=== PATIENT | male | born 1970 | race Caucasian/White ===

== ENCOUNTER 2025-03-16 01:43 | Observation (INO) ==
--- NOTE | 2025-03-16 01:58 | Emergency Department Note ---
Impression & Plan Stroke-like symptoms Admission ED Provider Note HPI: History obtained from patient. The patient is a 54-year-old gentleman with history of hypertension, hyperlipidemia, who presents to the emergency department with 1-1/2 hours of symptoms of chest discomfort, shortness of breath, and left-sided facial numbness. Patient states that he was drinking alcohol and working in his garage on a vehicle when he began to have the symptoms, he tells me it was about 1-1/2 hours prior to arrival. On arrival here to the ED the patient states he has discomfort in his shoulder that radiates down the left side of his body. He is noted to have some mild left-sided facial droop but otherwise does not have any focal deficits. Patient is alert and oriented x 3 on arrival and follows commands appropriately. ROS: - Per HPI Differential Diagnosis: Acute ischemic stroke, acute coronary syndrome, esophagitis, GERD, pneumothorax, pulmonary embolism, intracranial hemorrhage, Joyce's palsy, amongst other potential pathologies. *Outpatient medications and allergy history reviewed. PE: General: Alert HEENT: Normocephalic, trachea midline Eyes: Extraocular eye movement is intact, no scleral erythema Pulmonary: Clear to auscultation bilaterally, no wheezing Cardio: Regular rate and rhythm GI: Abdomen is soft to palpation : No suprapubic tenderness MSK: No evidence of trauma or malformation of the extremities, no edema Skin: No evidence of rash Neuro: Mild left-sided facial droop is noted, otherwise alert, no focal deficits Psychiatric: Cooperative NIH STROKE SCALE: 1A: Level of consciousness Alert; keenly responsive 0 1B: Ask month and age Both questions right 0 1C: 'Blink eyes' & 'squeeze hands' Performs both tasks 0 2: Horizontal extraocular movements Normal 0 3: Visual rose No visual loss 0 4: Facial palsy Minor paralysis (flat nasolabial fold, smile asymmetry) +1 5A: Left arm motor drift No drift for 10 seconds 0 5B: Right arm motor drift No drift for 10 seconds 0 6A: Left leg motor drift No drift for 5 seconds 0 6B: Right leg motor drift No drift for 5 seconds 0 7: Limb Ataxia No ataxia 0 8: Sensation Normal; no sensory loss 0 9: Language/aphasia Normal; no aphasia 0 10: Dysarthria Normal 0 11: Extinction/inattention No abnormality 0 TOTAL NIH SCORE =1 INDEPENDENT INTERPRETATIONS: secured entrance monitor: (As interpreted by myself): - An order was placed for continuous cardiac monitoring - Patient was noted to be in sinus rhythm with a rate of 70 EKG: (As interpreted by myself): Rate: 77 Rhythm: Normal sinus rhythm Intervals: Within normal limits ST changes: No ST elevation Time: 0153 Chest x-ray: (As interpreted by myself): No acute disease Interventions provided in ED: - Aspirin Medical Decision Making: IV was established and lab work obtained, patient was placed on cardiac rehabilitation specialist. Stroke alert was activated after my initial evaluation of the patient. Lab work shows a mild leukocytosis, hemoglobin is normal, platelet count is normal, CMP does not show any evidence of any critical findings. Troponin is negative x 1, EKG does not show any evidence of any acute ischemic changes. Chest x-ray does not show any evidence of acute disease per my interpretation. CT imaging of the head as well as CT angiography of the head and neck were obtained, there is no evidence of any acute stroke or large vessel occlusion. I discussed the patient's presentation with the on-call stroke neurologist for [facility], Dr. Oliveira, and he did evaluate the patient via telestroke consult. Following his evaluation it was determined that the patient would not be a good candidate for lysis as his symptoms are not considered to be debilitating. He only has some mild left-sided facial droop. In regards to the patient's chest pain, troponin is negative, EKG did not show any evidence of acute ischemic changes. He states he is pain-free on my reassessment. Recommendations per telestroke consult were for admission, aspirin, and secondary workup including MRI imaging of the brain to evaluate for any potential stroke that was not visualized on CT. Patient was in agreement to this plan. His case was discussed with the on-call hospitalist, Dr. Alamo, and the patient was placed for admission in stable condition. Consultants/Discussions held with other healthcare providers: - Stroke Neurology, Dr. Oliveira - Hospitalist, Dr. Alamo Disposition discussion held by myself with: - Patient Diagnosis: 1. Strokelike symptoms, acute 2. Nonspecific left-sided chest pain, acute Disposition: Admission Michael Cottrell DO Emergency Medicine Past Med/Surg History Problem List (Updated 03/16/25 @ 05:15 by Michael Cottrell DO) Stroke-like symptoms (Acute) Social History Smoking Status: Current every day smoker Preferred Language: Yemeni Feels Safe at Home: Yes Allergies Allergies Allergy/AdvReac Type Severity Reaction Status Date / Time No Known Allergies Allergy Unverified 03/16/25 02:06 Home Meds Home Medications Medication Instructions Recorded Confirmed atorvastatin 1 tab PO DAILY 03/16/25 03/16/25 lisinopril 10 1 tab PO DAILY 03/16/25 03/16/25 mg-hydrochlorothiazide 12.5 mg tablet Results & Data (ED) Vital Signs Vital Signs - 24 hr 03/16/25 01:46 03/16/25 01:55 03/16/25 02:26 Temperature 36.4 C L Temperature Source Temporal Artery Scan Pulse Rate 79 78 Pulse Rate [Right Finger] 77 Pulse Rhythm Regular Pulse Strength Normal Respiratory Rate 18 19 Respiratory Effort / Characteristics Non-Labored Spontaneous Respiratory Depth Normal Respiratory Pattern Regular Blood Pressure 118/73 Blood Pressure [Right Arm] Blood Pressure Mean 88 Blood Pressure Mean [Right Arm] Blood Pressure Position Sitting Pulse Oximetry 97 92 Oxygen Delivery Method Room Air Room Air Sepsis Recent Fever Within 48 Hours No Sepsis New/Unexplained Change in Mental Status N/A Sepsis Action Taken by Nursing No Action Required 03/16/25 02:27 03/16/25 02:46 03/16/25 03:00 Temperature Temperature Source Pulse Rate Pulse Rate [Right Finger] 80 79 65 Pulse Rhythm Pulse Strength Respiratory Rate 19 16 16 Respiratory Effort / Characteristics Non-Labored Spontaneous Respiratory Depth Normal Respiratory Pattern Blood Pressure Blood Pressure [Right Arm] 117/72 125/77 117/71 Blood Pressure Mean Blood Pressure Mean [Right Arm] 87 93 86 Blood Pressure Position Pulse Oximetry 93 91 94 Oxygen Delivery Method Room Air Room Air Room Air Sepsis Recent Fever Within 48 Hours Sepsis New/Unexplained Change in Mental Status Sepsis Action Taken by Nursing 03/16/25 03:11 03/16/25 03:26 03/16/25 03:41 Temperature Temperature Source Pulse Rate Pulse Rate [Right Finger] 65 63 66 Pulse Rhythm Pulse Strength Respiratory Rate 18 16 18 Respiratory Effort / Characteristics Respiratory Depth Respiratory Pattern Blood Pressure Blood Pressure [Right Arm] 121/63 100/61 113/69 Blood Pressure Mean Blood Pressure Mean [Right Arm] 82 74 83 Blood Pressure Position Pulse Oximetry 96 97 93 Oxygen Delivery Method Room Air Room Air Room Air Sepsis Recent Fever Within 48 Hours Sepsis New/Unexplained Change in Mental Status Sepsis Action Taken by Nursing 03/16/25 04:00 Temperature Temperature Source Pulse Rate Pulse Rate [Right Finger] 68 Pulse Rhythm Pulse Strength Respiratory Rate 18 Respiratory Effort / Characteristics Respiratory Depth Respiratory Pattern Blood Pressure Blood Pressure [Right Arm] 98/65 L Blood Pressure Mean Blood Pressure Mean [Right Arm] 76 Blood Pressure Position Pulse Oximetry 94 Oxygen Delivery Method Room Air Sepsis Recent Fever Within 48 Hours Sepsis New/Unexplained Change in Mental Status Sepsis Action Taken by Nursing Laboratory Data 03/16/25 03:03 03/16/25 01:58 Lab Results 03/16/25 03/16/25 03/16/25 Range/Units 01:58 02:02 03:03 WBC 11.79 H (4.8-10.8) K/ul RBC 5.29 (4.70-6.10) M/uL Hgb 16.2 (14.0-18.0) g/dl POC Hgb 16.7 (14.0-18.0) g/dl Hct 47.5 (42.0-52.0) % POC Hct 49 (42-52) % MCV 89.8 (80.0-100.0) fL MCH 30.6 (25.0-34.0) pg MCHC 34.1 (32.0-36.0) g/dL RDW Std Deviation 43.0 (36.4-46.3) fL RDW Coeff of [place] 13.0 (11.5-14.5) % Plt Count 240 (130-400) K/uL MPV 10.8 (9.4-12.4) fL Immature Gran % (Auto) 0.3 % Neut % (Auto) 68.3 % Lymph % (Auto) 23.5 % [place] % (Auto) 5.7 % Eos % (Auto) 1.6 % Baso % (Auto) 0.6 % Neut # (Auto) 8.05 H (1.40-6.50) K/uL Lymph # (Auto) 2.77 (1.20-3.40) K/uL [place] # (Auto) 0.67 H (0.11-0.59) K/uL Eos # (Auto) 0.19 (0.00-0.50) K/uL Baso # (Auto) 0.07 (0.00-0.20) K/uL Immature Gran # (Auto) 0.04 (0.01-0.20) K/uL PT 10.2 (9.0-12.0) Seconds INR 1.0 (0.9-1.1) APTT 27 (21-31) Seconds PTT Ratio 1.0 POC Sodium 142 (135-144) mmol/L Sodium 139 (136-145) mmol/L POC Potassium 3.4 (3.3-5.0) mmol/L Potassium 3.4 L (3.5-5.1) mmol/L POC Chloride 107 (101-112) mmol/L Chloride 107 (98-107) mmol/L Carbon Dioxide 19 L (21-32) mmol/L POC Total CO2 19 L (24-31) mmol/L Anion Gap 13 H (3-11) POC Anion Gap 20.0 (16-25) mmol/L POC BUN 13 (7-18) mg/dl BUN 13 (6-23) mg/dl Creatinine 0.99 (0.6-1.4) mg/dl POC Creatinine 1.3 (0.6-1.3) mg/dl Est Cr Clr Drug Dosing 78.8 ml/min eGFR 89.96 BUN/Creatinine Ratio 13.1 (10-20) Glucose 99 (70-99(Fasting)) mg/dl POC Glucose (other) 97 (70-99) mg/dl Calcium 9.4 (8.6-10.3) mg/dl POC Ioniz Calcium Red 1.11 L (1.12-1.32) mmol/l Magnesium 2.2 (1.7-2.4) mg/dl Total Bilirubin 0.4 (0.2-1.0) mg/dl AST 24 (13-39) U/L ALT 23 (7-52) U/L Alkaline Phosphatase 86 (34-104) U/L Troponin I High Sens 7.4 (0-20) pg/ml Total Protein 7.4 (6.0-8.3) gm/dl Albumin 4.6 (3.4-5.0) gm/dl Globulin 2.8 (2.5-4.0) gm/dl Albumin/Globulin Ratio 1.6 (0.9-2) Blood Type A Positive Antibody Screen NEGATIVE Administered Medications Discontinued Medications Aspirin (Aspirin Chew 324 Mg) 324 mg PO NOW STA Stop: 03/16/25 04:01 Last Admin: 03/16/25 04:19 Dose: 324 mg Documented By: ANAM Sodium Chloride (Nss) 1,000 mls @ 999 mls/hr IV .Q1H1M ONE Stop: 03/16/25 02:57 Last Infusion: 03/16/25 03:35 Dose: Infused Documented By: Admin: 03/16/25 02:26 Dose: 999 mls/hr Documented By: DILLON Ioversol (Optiray 320 125ml) 120 ml IV ONCE ONE Stop: 03/16/25 02:00 Last Admin: 03/16/25 01:59 Dose: 120 ml Documented By: MALINDA Imaging Data Radiologist's Impression: Head CT 03/16/25 01:56 EXAM: CT head/brain wo con CLINICAL HISTORY: neuro deficit, acute stroke suspected TECHNIQUE: Multiple axial images were obtained from the skull base to the vertex without contrast. CT scan was performed according to ALARA (as low as reasonably achievable). COMPARISON: None. FINDINGS: The brain demonstrates normal morphology, attenuation, and volume for age. There is no evidence of a space-occupying lesion, hemorrhage, edema, mass effect, midline shift, extra-axial collection, or hydrocephalus. The ventricles, sulci, and basal cisterns are symmetric and normal in size and configuration. Rivera-white matter differentiation is preserved. The visualized paranasal sinuses and mastoid air cells are well aerated. Orbital contents are within normal limits. Bony structures are intact. IMPRESSION: 1. CT scan is negative for large territorial ischemic or hemorrhagic stroke. 2. Non-contrast CT can be negative in the setting of hyperacute infarct or small ischemic infarct, and further evaluation with diffusion-weighted MRI is recommended as clinically appropriate. Electronically signed by Kain Carter 03-16-2025 02:38 AM Head CTA 03/16/25 01:56 EXAM: CT angio head w con CLINICAL HISTORY: neuro deficit, acute stroke suspected TECHNIQUE: Contrast-enhanced, thin-slice CT angiography scan of the cerebral vessels was performed with intravenous contrast. Angiographic images were processed, and 3D MIP images were acquired for interpretation. Contiguous axial images were obtained. Reformatted coronal and sagittal images were also reviewed. If IV contrast material had not been administered, the likelihood of detecting abnormalities relevant to the patient's condition would have been substantially decreased. CT scan was performed according to ALARA (as low as reasonably achievable). COMPARISON: none. FINDINGS: Bilateral internal carotid arteries show normal course, calibre, and opacification in the canalicular and cavernous parts. Their division into the anterior cerebral artery and middle cerebral artery is defined. A1, A2, and M1, M2 segments are normal on both sides. Bilateral vertebral arteries are seen to unite to form the basilar artery in a normal fashion. Basilar artery shows normal course, caliber, and opacification. Its division into the posterior cerebral arteries is defined. Bilateral P1 and P2 segments are normal. Visualized venous structures show normal opacification. No evidence of intracranial aneurysm or AV malformation is seen. IMPRESSION: No evidence of stenosis or aneurysm. No evidence of dissection. Electronically signed by Kain Carter 03-16-2025 02:39 AM Neck CTA 03/16/25 01:56 EXAM: CT angio neck with con CLINICAL HISTORY: neuro deficit, acute stroke suspected TECHNIQUE: Contrast-enhanced, thin-slice CT angiography scan of the carotid vessels was performed with intravenous contrast. Angiographic images were processed, and 3D MIP images were acquired for interpretation. Contiguous axial images were obtained. Reformatted coronal and sagittal images were also reviewed. If IV contrast material had not been administered, the likelihood of detecting abnormalities relevant to the patient's condition would have been substantially decreased. The CT scan was performed according to ALARA (as low as reasonably achievable). COMPARISON: None. FINDINGS: The included great vessels of the aortic arch are grossly unremarkable. The common carotid artery, carotid bulb, internal carotid artery, and origin of the external carotid artery are well opacified. The vertebral arteries are well opacified. The jugular veins are well opacified. The included lung apices are grossly unremarkable. The thyroid gland appears unremarkable. IMPRESSION: No evidence of stenosis or aneurysm. No evidence of dissection. Electronically signed by Kain Carter 03-16-2025 02:49 AM Chest X-Ray 03/16/25 01:57 EXAM: XR chest 1V portable CLINICAL HISTORY: SOB/CP. TECHNIQUE: An X-ray image of the chest was obtained in AP projection. COMPARISON: No prior studies are available for comparison. FINDINGS: Chest leads are identified. Pulmonary Parenchyma: The lungs are clear bilaterally. There is no evidence of consolidation, collapse, or focal opacities. No pulmonary nodules are identified. There is no evidence of pleural effusion or pleural thickening. Prominent vessels are seen at both pineda, likely due to vascular congestion. Heart and Mediastinum: The heart size and shape are normal. There is no mediastinal widening or masses. No hilar or mediastinal lymphadenopathy is seen. Bony Thorax: The bony thorax appears intact without fractures or deformities. Soft Tissues: The soft tissues overlying the chest wall are unremarkable. IMPRESSION: 1. No acute cardiopulmonary abnormalities are identified. 2. Prominent vessels at both pineda, likely due to vascular congestion. Electronically signed by Jacob Kimble 03-16-2025 03:11 AM Discharge Plan Visit Data Chief Complaint: Stroke/CVA Symptoms Stated Complaint: STROKE SYMP ED Provider: Michael Cottrell Discharge Problem: Stroke-like symptoms Patient Disposition: Admitted As Inpatient Condition: Fair Forms Stand Alone Forms: [employer] Signals Prescriptions Prescriptions: No Action atorvastatin 20 mg 1 tab PO DAILY Rx Instructions: unknown strength lisinopril-hydrochlorothiazide 10-12.5 mg Tablet 1 tab PO DAILY Referrals Referrals: Johnny Tyler Jr, DO [Physician] -
[2025-03-16] MEDS: OPTIRAY 320 125ml IV ONE (01:59)
[2025-03-16] MEDS: SODIUM CHLORIDE 0.9% 1,000 ML IV ONE (02:26)
--- NOTE | 2025-03-16 02:39 | CT Scan Report ---
EXAM: CT angio head w con CLINICAL HISTORY: neuro deficit, acute stroke suspected TECHNIQUE: Contrast-enhanced, thin-slice CT angiography scan of the cerebral vessels was performed with intravenous contrast. Angiographic images were processed, and 3D MIP images were acquired for interpretation. Contiguous axial images were obtained. Reformatted coronal and sagittal images were also reviewed. If IV contrast material had not been administered, the likelihood of detecting abnormalities relevant to the patient's condition would have been substantially decreased. CT scan was performed according to ALARA (as low as reasonably achievable). COMPARISON: none. FINDINGS: Bilateral internal carotid arteries show normal course, calibre, and opacification in the canalicular and cavernous parts. Their division into the anterior cerebral artery and middle cerebral artery is defined. A1, A2, and M1, M2 segments are normal on both sides. Bilateral vertebral arteries are seen to unite to form the basilar artery in a normal fashion. Basilar artery shows normal course, caliber, and opacification. Its division into the posterior cerebral arteries is defined. Bilateral P1 and P2 segments are normal. Visualized venous structures show normal opacification. No evidence of intracranial aneurysm or AV malformation is seen. IMPRESSION: No evidence of stenosis or aneurysm. No evidence of dissection. Electronically signed by Kain Carter 03-16-2025 02:39 AM
--- NOTE | 2025-03-16 02:39 | CT Scan Report ---
EXAM: CT head/brain wo con CLINICAL HISTORY: neuro deficit, acute stroke suspected TECHNIQUE: Multiple axial images were obtained from the skull base to the vertex without contrast. CT scan was performed according to ALARA (as low as reasonably achievable). COMPARISON: None. FINDINGS: The brain demonstrates normal morphology, attenuation, and volume for age. There is no evidence of a space-occupying lesion, hemorrhage, edema, mass effect, midline shift, extra-axial collection, or hydrocephalus. The ventricles, sulci, and basal cisterns are symmetric and normal in size and configuration. Rivera-white matter differentiation is preserved. The visualized paranasal sinuses and mastoid air cells are well aerated. Orbital contents are within normal limits. Bony structures are intact. IMPRESSION: 1. CT scan is negative for large territorial ischemic or hemorrhagic stroke. 2. Non-contrast CT can be negative in the setting of hyperacute infarct or small ischemic infarct, and further evaluation with diffusion-weighted MRI is recommended as clinically appropriate. Electronically signed by Kain Carter 03-16-2025 02:38 AM
--- NOTE | 2025-03-16 02:49 | CT Scan Report ---
EXAM: CT angio neck with con CLINICAL HISTORY: neuro deficit, acute stroke suspected TECHNIQUE: Contrast-enhanced, thin-slice CT angiography scan of the carotid vessels was performed with intravenous contrast. Angiographic images were processed, and 3D MIP images were acquired for interpretation. Contiguous axial images were obtained. Reformatted coronal and sagittal images were also reviewed. If IV contrast material had not been administered, the likelihood of detecting abnormalities relevant to the patient's condition would have been substantially decreased. The CT scan was performed according to ALARA (as low as reasonably achievable). COMPARISON: None. FINDINGS: The included great vessels of the aortic arch are grossly unremarkable. The common carotid artery, carotid bulb, internal carotid artery, and origin of the external carotid artery are well opacified. The vertebral arteries are well opacified. The jugular veins are well opacified. The included lung apices are grossly unremarkable. The thyroid gland appears unremarkable. IMPRESSION: No evidence of stenosis or aneurysm. No evidence of dissection. Electronically signed by Kain Carter 03-16-2025 02:49 AM
--- NOTE | 2025-03-16 03:11 | XRay Report ---
EXAM: XR chest 1V portable CLINICAL HISTORY: SOB/CP. TECHNIQUE: An X-ray image of the chest was obtained in AP projection. COMPARISON: No prior studies are available for comparison. FINDINGS: Chest leads are identified. Pulmonary Parenchyma: The lungs are clear bilaterally. There is no evidence of consolidation, collapse, or focal opacities. No pulmonary nodules are identified. There is no evidence of pleural effusion or pleural thickening. Prominent vessels are seen at both pineda, likely due to vascular congestion. Heart and Mediastinum: The heart size and shape are normal. There is no mediastinal widening or masses. No hilar or mediastinal lymphadenopathy is seen. Bony Thorax: The bony thorax appears intact without fractures or deformities. Soft Tissues: The soft tissues overlying the chest wall are unremarkable. IMPRESSION: 1. No acute cardiopulmonary abnormalities are identified. 2. Prominent vessels at both pineda, likely due to vascular congestion. Electronically signed by Jacob Kimble 03-16-2025 03:11 AM
[2025-03-16 03:15] LABS: Hematocrit (blood only) 47.5 % (42.0-52.0); Hemoglobin 16.2 g/dl (14.0-18.0); Immature Granulocytes # (auto) 0.04 K/uL (0.01-0.20); Immature Granulocytes % (auto) 0.3 %; Mean Corpuscular Hemoglobin 30.6 pg (25.0-34.0); Mean Corpuscular Volume 89.8 fL (80.0-100.0); Platelet Count 240 K/uL (130-400); RDW Standard Deviation 43.0 fL (36.4-46.3); Red Blood Count 5.29 M/uL (4.70-6.10); White Blood Count 11.79 K/ul (4.8-10.8)
[2025-03-16 03:23] LABS: INR 1.0 (0.9-1.1); Partial Thromboplastin Time 27 Seconds (21-31); Prothrombin Time 10.2 Seconds (9.0-12.0)
[2025-03-16 03:26] LABS: Alanine Aminotransferase 23.0 U/L (7-52); Albumin Globulin Ratio 1.6 (0.9-2); Albumin Level 4.6 gm/dl (3.4-5.0); Alkaline Phosphatase 86.0 U/L (34-104); Anion Gap 13.0 (3-11); Bilirubin,Total 0.4 mg/dl (0.2-1.0); Blood Urea Nitrogen 13.0 mg/dl (6-23); Calcium 9.4 mg/dl (8.6-10.3); Carbon Dioxide 19.0 mmol/L (21-32); Chloride 107.0 mmol/L (98-107); Creatinine Clr Calc Pharmacy 78.8 ml/min; Globulin 2.8 gm/dl (2.5-4.0); Glucose 99.0 mg/dl (70-99(Fasting)); Magnesium 2.2 mg/dl (1.7-2.4); Potassium 3.4 mmol/L (3.5-5.1); Sodium 139.0 mmol/L (136-145); Total Protein 7.4 gm/dl (6.0-8.3)
[2025-03-16 04:09] VITALS: RESP 18
[2025-03-16] MEDS: ASPIRIN CHEW 324 MG PO STA (04:19)
--- NOTE | 2025-03-16 04:57 | History & Physical Report ---
Date of Service March 16, 2025 Assessment & Plan (1) Stroke-like symptoms: Plan: 54-year-old male with past medical history significant for hyperlipidemia, hypertension presents with strokelike symptoms. Around midnight patient was in his garage and was drinking beer when he felt like he could not take deep breath and then noticed pain in the left shoulder. The pain spread whole of his left side then he felt numbness in the left upper lip and decided come to the ER. His pain in the left side improved but felt somewhat different feeling of the left side for some time. He was stroke alerted in the ER. Currently all of his symptoms improved. Able to ambulate as per patient. Denies headache or dizziness. No blurred visions or double vision. No runny nose or sore throat or cough. No fevers. No difficulty swallowing. Denies any chest pain. No nausea. No abdominal pain. Normal bowel and bladder movements. No rash. States he drank 8 beers today. Patient says he generally drinks beer 6 pack a day on the weekends but on the weekdays he does not drink that much and sometimes he can go without drinking from Monday to Monday. Smokes 1 pack cigarettes daily and sometimes 1.5 pack daily since age 14. Currently resting comfortably. Strokelike symptoms Has mild left facial droop Patient had left lip numbness which is resolved now Initially had left-sided pain and then seemed to had unexplainable left side feeling which is resolved now No TNK per telestroke Received aspirin Will place him on high-dose Lipitor Will do stroke workup with MRI scan, echo Neurochecks PT OT Telemetry Neurology consulted for further recommendation Hypertension Will hold home lisinopril/hydrochlorothiazide Allow for permissive hypertension Will monitor Hyperlipidemia Seems on Lipitor 20 mg at home Will change to 40 mg Lipitor Will follow lipid profile Alcoholism States drinks at least 6 pack a day on the weekends but not much on the weekdays Patient does not think that he will go through withdrawal Will place him on thiamine and multivitamins Counseling Close monitor Tobacco abuse Counseling DVT prophylaxis SCDs Disposition Telemetry Full code History of Present Illness Chief Complaint: Strokelike symptoms Primary Care Provider: JULIO Nassar 54-year-old male with past medical history significant for hyperlipidemia, hypertension presents with strokelike symptoms. Around midnight patient was in his garage and was drinking beer when he felt like he could not take deep breath and then noticed pain in the left shoulder. The pain spread whole of his left side then he felt numbness in the left upper lip and decided come to the ER. His pain in the left side improved but felt somewhat different feeling of the left side for some time. He was stroke alerted in the ER. Currently all of his symptoms improved. Able to ambulate as per patient. Denies headache or dizziness. No blurred visions or double vision. No runny nose or sore throat or cough. No fevers. No difficulty swallowing. Denies any chest pain. No nausea. No abdominal pain. Normal bowel and bladder movements. No rash. States he drank 8 beers today. Patient says he generally drinks beer 6 pack a day on the weekends but on the weekdays he does not drink that much and sometimes he can go without drinking from Monday to Monday. Smokes 1 pack cigarettes daily and sometimes 1.5 pack daily since age 14. Currently resting comfortably. Past medical history. As mentioned above Past surgical history. Tympanostomy tubes. Tonsillectomy/adenectomy Social history. Smokes 1 pack a day and sometimes 1.5 pack a day for last 40 years. Drinks beer heavily on the weekends but not much on the weekdays as per patient. Denies any drug use. Family history. Paternal aunt had lung cancer. Maternal grandfather had pancreatic cancer. Paternal grandfather had lung cancer. Paternal grandmother had diabetes. Father has diabetes. Allergies Allergy/AdvReac Type Severity Reaction Status Date / Time No Known Allergies Allergy Unverified 03/16/25 02:06 Home Medications Medication Instructions Recorded Confirmed Type atorvastatin 1 tab PO DAILY 03/16/25 03/16/25 History lisinopril 10 1 tab PO DAILY 03/16/25 03/16/25 History mg-hydrochlorothiazide 12.5 mg tablet Past Med/Surg History Problem List (Updated 03/16/25 @ 05:15 by Michael Cottrell DO) Stroke-like symptoms (Acute) Social History Smoking Status: Current every day smoker Tobacco Type: Cigarettes Second Hand Exposure: Yes; Do You Dip or Chew Tobacco: No; Tobacco Cessation Education Requested by Patient: No Hx Alcohol Use: Yes Alcohol type: beer Hx Substance Use: No Preferred Language: Mongolian Communication Ability: Effective Ed Manager Required: No Beliefs That Will Affect Care: None Current Living Situation: Significant Other Feels Safe at Home: Yes Safety Concerns: Feels Safe At This Time Assistive Devices: Glasses Review of Systems Review of Systems: All systems reviewed & are unremarkable except as noted in HPI & below Physical Exam Physical Exam: General- Not in distress Head- atraumatic Eyes- PERRL, EOMI ENT- oropharynx clear Neck- supple, no JVD Lungs- clear to auscultation no wheezing or crackles Heart- regular rate and rhythm; no murmur, no gallop. Abdomen- normal bowel sounds, soft, nontender, no distension Extremities- no pretibial edema, no erythema seen Neuro- alert, oriented PERRL, EOMI; mild left facial droop seen no dysarthria; motor 5/5 bilaterally; no pronator drift, finger nose test ok, coordination of movements normal, sensations intact, position sense intact Skin- warm & dry Results & Data Results & Data Vital Signs (Past 12 Hours) Vital Signs Temp Pulse Pulse Resp BP BP Pulse Ox 03/16/25 04:00 68 18 98/65 L 94 03/16/25 03:41 66 18 113/69 93 03/16/25 03:26 63 16 100/61 97 03/16/25 03:11 65 18 121/63 96 03/16/25 03:00 65 16 117/71 94 03/16/25 02:46 79 16 125/77 91 03/16/25 02:27 80 19 117/72 93 03/16/25 02:26 77 19 92 03/16/25 01:55 78 03/16/25 01:46 36.4 C L 79 18 118/73 97 O2 Del Method 03/16/25 04:00 Room Air 03/16/25 03:41 Room Air 03/16/25 03:26 Room Air 03/16/25 03:11 Room Air 03/16/25 03:00 Room Air 03/16/25 02:46 Room Air 03/16/25 02:27 Room Air 03/16/25 02:26 Room Air 03/16/25 01:55 03/16/25 01:46 Room Air Diagnostic Findings Laboratory Results WBC 11.79 K/ul (4.8-10.8) H 03/16/25 03:03 RBC 5.29 M/uL (4.70-6.10) 03/16/25 03:03 Hgb 16.2 g/dl (14.0-18.0) 03/16/25 03:03 POC Hgb 16.7 g/dl (14.0-18.0) 03/16/25 02:02 Hct 47.5 % (42.0-52.0) 03/16/25 03:03 POC Hct 49 % (42-52) 03/16/25 02:02 MCV 89.8 fL (80.0-100.0) 03/16/25 03:03 MCH 30.6 pg (25.0-34.0) 03/16/25 03:03 MCHC 34.1 g/dL (32.0-36.0) 03/16/25 03:03 RDW Std Deviation 43.0 fL (36.4-46.3) 03/16/25 03:03 RDW Coeff of [place] 13.0 % (11.5-14.5) 03/16/25 03:03 Plt Count 240 K/uL (130-400) 03/16/25 03:03 MPV 10.8 fL (9.4-12.4) 03/16/25 03:03 Immature Gran % (Auto) 0.3 % 03/16/25 03:03 Neut % (Auto) 68.3 % 03/16/25 03:03 Lymph % (Auto) 23.5 % 03/16/25 03:03 [place] % (Auto) 5.7 % 03/16/25 03:03 Eos % (Auto) 1.6 % 03/16/25 03:03 Baso % (Auto) 0.6 % 03/16/25 03:03 Neut # (Auto) 8.05 K/uL (1.40-6.50) H 03/16/25 03:03 Lymph # (Auto) 2.77 K/uL (1.20-3.40) 03/16/25 03:03 [place] # (Auto) 0.67 K/uL (0.11-0.59) H 03/16/25 03:03 Eos # (Auto) 0.19 K/uL (0.00-0.50) 03/16/25 03:03 Baso # (Auto) 0.07 K/uL (0.00-0.20) 03/16/25 03:03 Immature Gran # (Auto) 0.04 K/uL (0.01-0.20) 03/16/25 03:03 PT 10.2 Seconds (9.0-12.0) 03/16/25 03:03 INR 1.0 (0.9-1.1) 03/16/25 03:03 APTT 27 Seconds (21-31) 03/16/25 03:03 PTT Ratio 1.0 03/16/25 03:03 POC Sodium 142 mmol/L (135-144) 03/16/25 02:02 Sodium 139 mmol/L (136-145) 03/16/25 01:58 POC Potassium 3.4 mmol/L (3.3-5.0) 03/16/25 02:02 Potassium 3.4 mmol/L (3.5-5.1) L 03/16/25 01:58 POC Chloride 107 mmol/L (101-112) 03/16/25 02:02 Chloride 107 mmol/L (98-107) 03/16/25 01:58 Carbon Dioxide 19 mmol/L (21-32) L 03/16/25 01:58 POC Total CO2 19 mmol/L (24-31) L 03/16/25 02:02 Anion Gap 13 (3-11) H 03/16/25 01:58 POC Anion Gap 20.0 mmol/L (16-25) 03/16/25 02:02 POC BUN 13 mg/dl (7-18) 03/16/25 02:02 BUN 13 mg/dl (6-23) 03/16/25 01:58 Creatinine 0.99 mg/dl (0.6-1.4) 03/16/25 01:58 POC Creatinine 1.3 mg/dl (0.6-1.3) 03/16/25 02:02 Est Cr Clr Drug Dosing 78.8 ml/min 03/16/25 01:58 eGFR 89.96 03/16/25 01:58 BUN/Creatinine Ratio 13.1 (10-20) 03/16/25 01:58 Glucose 99 mg/dl (70-99(Fasting)) 03/16/25 01:58 POC Glucose (other) 97 mg/dl (70-99) 03/16/25 02:02 Calcium 9.4 mg/dl (8.6-10.3) 03/16/25 01:58 POC Ioniz Calcium Red 1.11 mmol/l (1.12-1.32) L 03/16/25 02:02 Magnesium 2.2 mg/dl (1.7-2.4) 03/16/25 01:58 Total Bilirubin 0.4 mg/dl (0.2-1.0) 03/16/25 01:58 AST 24 U/L (13-39) 03/16/25 01:58 ALT 23 U/L (7-52) 03/16/25 01:58 Alkaline Phosphatase 86 U/L (34-104) 03/16/25 01:58 Troponin I High Sens 7.4 pg/ml (0-20) 03/16/25 01:58 Total Protein 7.4 gm/dl (6.0-8.3) 03/16/25 01:58 Albumin 4.6 gm/dl (3.4-5.0) 03/16/25 01:58 Globulin 2.8 gm/dl (2.5-4.0) 03/16/25 01:58 Albumin/Globulin Ratio 1.6 (0.9-2) 03/16/25 01:58 Blood Type A Positive 03/16/25 03:03 Antibody Screen NEGATIVE 03/16/25 03:[address] 03/16/25 01:56 EXAM: CT head/brain wo con CLINICAL HISTORY: neuro deficit, acute stroke suspected TECHNIQUE: Multiple axial images were obtained from the skull base to the vertex without contrast. CT scan was performed according to ALARA (as low as reasonably achievable). COMPARISON: None. FINDINGS: The brain demonstrates normal morphology, attenuation, and volume for age. There is no evidence of a space-occupying lesion, hemorrhage, edema, mass effect, midline shift, extra-axial collection, or hydrocephalus. The ventricles, sulci, and basal cisterns are symmetric and normal in size and configuration. Rivera-white matter differentiation is preserved. The visualized paranasal sinuses and mastoid air cells are well aerated. Orbital contents are within normal limits. Bony structures are intact. IMPRESSION: 1. CT scan is negative for large territorial ischemic or hemorrhagic stroke. 2. Non-contrast CT can be negative in the setting of hyperacute infarct or small ischemic infarct, and further evaluation with diffusion-weighted MRI is recommended as clinically appropriate. Electronically signed by Kain Cartre 03-16-2025 02:38 AM Head CTA 03/16/25 01:56 EXAM: CT angio head w con CLINICAL HISTORY: neuro deficit, acute stroke suspected TECHNIQUE: Contrast-enhanced, thin-slice CT angiography scan of the cerebral vessels was performed with intravenous contrast. Angiographic images were processed, and 3D MIP images were acquired for interpretation. Contiguous axial images were obtained. Reformatted coronal and sagittal images were also reviewed. If IV contrast material had not been administered, the likelihood of detecting abnormalities relevant to the patient's condition would have been substantially decreased. CT scan was performed according to ALARA (as low as reasonably achievable). COMPARISON: none. FINDINGS: Bilateral internal carotid arteries show normal course, calibre, and opacification in the canalicular and cavernous parts. Their division into the anterior cerebral artery and middle cerebral artery is defined. A1, A2, and M1, M2 segments are normal on both sides. Bilateral vertebral arteries are seen to unite to form the basilar artery in a normal fashion. Basilar artery shows normal course, caliber, and opacification. Its division into the posterior cerebral arteries is defined. Bilateral P1 and P2 segments are normal. Visualized venous structures show normal opacification. No evidence of intracranial aneurysm or AV malformation is seen. IMPRESSION: No evidence of stenosis or aneurysm. No evidence of dissection. Electronically signed by Kain Carter 03-16-2025 02:39 AM Neck CTA 03/16/25 01:56 EXAM: CT angio neck with con CLINICAL HISTORY: neuro deficit, acute stroke suspected TECHNIQUE: Contrast-enhanced, thin-slice CT angiography scan of the carotid vessels was performed with intravenous contrast. Angiographic images were processed, and 3D MIP images were acquired for interpretation. Contiguous axial images were obtained. Reformatted coronal and sagittal images were also reviewed. If IV contrast material had not been administered, the likelihood of detecting abnormalities relevant to the patient's condition would have been substantially decreased. The CT scan was performed according to ALARA (as low as reasonably achievable). COMPARISON: None. FINDINGS: The included great vessels of the aortic arch are grossly unremarkable. The common carotid artery, carotid bulb, internal carotid artery, and origin of the external carotid artery are well opacified. The vertebral arteries are well opacified. The jugular veins are well opacified. The included lung apices are grossly unremarkable. The thyroid gland appears unremarkable. IMPRESSION: No evidence of stenosis or aneurysm. No evidence of dissection. Electronically signed by Kain Carter 03-16-2025 02:49 AM Chest X-Ray 03/16/25 01:57 EXAM: XR chest 1V portable CLINICAL HISTORY: SOB/CP. TECHNIQUE: An X-ray image of the chest was obtained in AP projection. COMPARISON: No prior studies are available for comparison. FINDINGS: Chest leads are identified. Pulmonary Parenchyma: The lungs are clear bilaterally. There is no evidence of consolidation, collapse, or focal opacities. No pulmonary nodules are identified. There is no evidence of pleural effusion or pleural thickening. Prominent vessels are seen at both pineda, likely due to vascular congestion. Heart and Mediastinum: The heart size and shape are normal. There is no mediastinal widening or masses. No hilar or mediastinal lymphadenopathy is seen. Bony Thorax: The bony thorax appears intact without fractures or deformities. Soft Tissues: The soft tissues overlying the chest wall are unremarkable. IMPRESSION: 1. No acute cardiopulmonary abnormalities are identified. 2. Prominent vessels at both pineda, likely due to vascular congestion. Electronically signed by Jacob Kimble 03-16-2025 03:11 AM ECG Additional Comments: ECG. Normal sinus rhythm with sinus arrhythmia rate of 77. Inferior infarct age undetermined. QTc 430. Code Status & VTE Plan VTE Prophylaxis Plan VTE Prophylaxis will be ordered: Yes
[2025-03-16] MEDS: THIAMINE HCL 100 MG in SYRINGE 9 ML IV STA (05:40)
[2025-03-16] MEDS: FOLIC ACID 1 MG in SYRINGE 9.8 ML IV STA (05:40)
[2025-03-16] MEDS ORDERED: ACETAMINOPHEN 325 MG TAB PO PRN (06:21)
[2025-03-16] MEDS ORDERED: POLYETHYLENE (MIRALAX) 17 GM PACK PO PRN (06:21)
[2025-03-16] MEDS ORDERED: PHARMACIST DISCHARGE MED REC CONSULT PRN (06:21)
[2025-03-16] MEDS ORDERED: NITROGLYCERIN SL 0.4 MG/TAB TAB SL PRN (06:21)
[2025-03-16] MEDS: SODIUM CHLORIDE 0.9% 1,000 ML IV SCH (08:00)
[2025-03-16] MEDS: CEROVITE ADV FORMULA TAB PO SCH (08:00)
[2025-03-16] MEDS: ATORVASTATIN 40 MG TAB PO SCH (08:00)
[2025-03-16] MEDS: POTASSIUM CHLORIDE 20 MEQ/15 ML UDC PO STA (08:00)
[2025-03-16] MEDS: THIAMINE HCL 50 MG TABLET PO SCH (08:00)
[2025-03-16 10:25] LABS: Hemoglobin A1C 5.3 % (4.5-5.6)
[2025-03-16 10:39] LABS: Cholesterol 150.0 mg/dl (0-200); HDL Cholesterol 53.0 mg/dl; Triglycerides 156.0 mg/dl (0-150)
[2025-03-16] MEDS: GADOBUTROL 30ML VIAL IV ONE (10:56)
--- NOTE | 2025-03-16 11:13 | Magnetic Resonance Report ---
HISTORY: Hypertension and hyperlipidemia. Left-sided facial numbness. TECHNIQUE: MRI of the brain with and without IV contrast. COMPARISON: Head CT dated 03/16/2025. FINDINGS: The sella is not expanded. The cerebellar tonsils do not extend below the foramen magnum.No areas of restricted diffusion to suggest acute infarct. The brain parenchyma demonstrates normal signal intensity on T2/FLAIR weighted imaging.No areas of susceptibility artifact to suggest intracranial hemorrhage or abnormal hemosiderin deposition.No abnormal intracranial enhancement is identified.Mild diffuse volume loss. Ventricular caliber is appropriate. The fourth ventricle is midline. The basal cisterns are patent. The major intracranial flow voids are maintained. The globes and orbits are unremarkable. No paranasal sinus air-fluid levels. Mastoid air cells are well aerated. Soft tissues of the skull base and scalp are unremarkable. IMPRESSION: No acute intracranial findings. No evidence of acute infarct, intracranial hemorrhage, or enhancing intracranial mass. Electronically signed by Ulises Naik 03-16-2025 11:13 AM
[2025-03-16] MEDS ORDERED: Nursing to Pharmacy Communication SCH (11:15)
[2025-03-16 11:32] VITALS: BP 145/70; PULSE 65; TEMP 98.4; O2SAT 92
[2025-03-16] MEDS: CLOPIDOGREL BISULFATE 300 MG TAB PO STA (11:44)
[2025-03-16] MEDS: ASPIRIN 81 MG ECTAB PO SCH (11:44)
[2025-03-16] MEDS ORDERED: STROKE PATIENT DISCHARGE STA (11:50)
--- NOTE | 2025-03-16 11:55 | Discharge Summary ---
Discharge Summary Date of Service March 16, 2025 Principal Dx & Hospital Course #1 = Principal Diagnosis (1) Stroke-like symptoms: Mr. Freire is a 54-year-old male with past medical history significant for hyperlipidemia, hypertension presents with strokelike symptoms. HE reports, left sided sensation change in his LUE/LLE. Initially it was described as pain, however, upon clarification he reports it to be blunting/heaviness of the extremities. He reported also sensation exchange architect his left lip with a reported facial assymmetry. All symptoms resolved. CT and MRI negative for acute stoke. Discussed case with Neurology who is suspicious for anxiety/panic attack contributing, however, given risk factors and questionable symptoms, will treat with DAPT for 21 days total for presumptive TIA. #c/f TIA #Strokelike symptoms left facial droop noted, facial numbness, left UE/LE paraesthesias---resolved No TNK per telestroke Received aspirin, loaded with plavix continue statin continue asa 20 days of plavix on discharge #Hypertension continue lisinopril-hctz #Hyperlipidemia Seems on Lipitor 20 mg at home LDL < 70 on 20mg statin #Alcohol use disorder States drinks at least 6 pack a day on the weekends but not much on the weekdays encourage cessation #Tobacco abuse Counseling Notes For Next Care Provider Medication Changes From Visit plavix 75mg daily x 20 more days Admission HPI Per Admitting Provider 54-year-old male with past medical history significant for hyperlipidemia, hypertension presents with strokelike symptoms. Around midnight patient was in his garage and was drinking beer when he felt like he could not take deep breath and then noticed pain in the left shoulder. The pain spread whole of his left side then he felt numbness in the left upper lip and decided come to the ER. His pain in the left side improved but felt somewhat different feeling of the left side for some time. He was stroke alerted in the ER. Currently all of his symptoms improved. Able to ambulate as per patient. Denies headache or dizziness. No blurred visions or double vision. No runny nose or sore throat or cough. No fevers. No difficulty swallowing. Denies any chest pain. No nausea. No abdominal pain. Normal bowel and bladder movements. No rash. States he drank 8 beers today. Patient says he generally drinks beer 6 pack a day on the weekends but on the weekdays he does not drink that much and sometimes he can go without drinking from Monday to Monday. Smokes 1 pack cigarettes daily and sometimes 1.5 pack daily since age 14. Currently resting comfortably. Past medical history. As mentioned above Past surgical history. Tympanostomy tubes. Tonsillectomy/adenectomy Social history. Smokes 1 pack a day and sometimes 1.5 pack a day for last 40 years. Drinks beer heavily on the weekends but not much on the weekdays as per patient. Denies any drug use. Family history. Paternal aunt had lung cancer. Maternal grandfather had pancreatic cancer. Paternal grandfather had lung cancer. Paternal grandmother had diabetes. Father has diabetes. Admission Exam Per Admitting Provider General- Not in distress Head- atraumatic Eyes- PERRL, EOMI ENT- oropharynx clear Neck- supple, no JVD Lungs- clear to auscultation no wheezing or crackles Heart- regular rate and rhythm; no murmur, no gallop. Abdomen- normal bowel sounds, soft, nontender, no distension Extremities- no pretibial edema, no erythema seen Neuro- alert, oriented PERRL, EOMI; mild left facial droop seen no dysarthria; motor 5/5 bilaterally; no pronator drift, finger nose test ok, coordination of movements normal, sensations intact, position sense intact Skin- warm & dry Discharge Exam Constitutional WD/WN, vitals as above Respiratory normal respiratory effort, lungs clear to auscultation Cardiovascular RRR, no murmur, no edema Gastrointestinal (Abdomen) normal bowel sounds, soft, nontender, no hepatosplenomegaly Neurologic CN II-XII intact, normal gait Updated Medication List Medication Instructions Recorded Confirmed Type Pharmacist Discharge Consult 1 ea Not Applicable UD PRN ##0 03/16/25 Rx [Pharmacist Discharge Med Rec Consult] aspirin 81 mg tablet,delayed 81 mg PO QAM #30 tabs 03/16/25 Rx release atorvastatin 1 tab PO DAILY 03/16/25 03/16/25 History clopidogrel 75 mg tablet 75 mg PO QAM 20 days #20 tabs 03/16/25 Rx lisinopril 10 1 tab PO DAILY 03/16/25 03/16/25 History mg-hydrochlorothiazide 12.5 mg tablet Hospital Stay Data Consultations 03/16/25 04:03 ED Decision to Admit Stat 03/16/25 06:21 Consult Neurology Routine Diagnostic Imagining Performed 03/16/25 01:56 CT angio head w con Stat CT angio neck with con Stat CT head/brain wo con Stat 03/16/25 06:21 MR brain wo/w con Urgent Pending Results Patient Have Any Pending Studies at Discharge: No Discharge Instructions Given to Patient (Per Discharging Provider) You have been diagnosed with a transient ischemic attack (TIA). A TIA is also known as a mini-stroke. This happens when blood could not reach part of your brain for a short period of time. Unlike a stroke, a TIA does not usually cause lasting damage. If you think you are having symptoms of a TIA or stroke,get medical help right away.Do this even if your symptoms go away. Please follow up with your PCP Prevention * Take your medicines exactly as directed. Dont skip doses. Continue your cholesterol medication Continue a daily aspirin Continue a daily Plavix for 20 more days, until all tablets are done. * Learn to take your blood pressure. Write down the numbers and tell your doctor. * Learn your cholesterol level. Follow your doctors advice about how to keep cholesterol under control. Make these lifestyle changes: * Quit smoking.Join a stop-smoking program to improve your chances of success. Ask your doctor about medicines or other methods to help you quit. * Limit your alcohol.Don't have more than 2 drinks a day * Keep a healthy weight.Get help to lose any extra pounds. If you are overweight, your doctor will work with you to lose weight and lower your body mass index (BMI) to a normal or near-normal level. Making diet changes and increasing physical activity can help. * Start an exercise program.Ask your doctor how to get started and how much activity you should try to get on a daily or weekly basis. You can benefit from simple activities, such as walking or gardening. * Learn ways to manage your stress.There are many methods to manage stress. They can help you deal with stress in your home and work life. You may also need to change what you eat. Your doctor may refer you to a registered dietitian for help with diet changes. These changes may include: * Eating less fat and cholesterol. * Having less salt (sodium), especially if you have high blood pressure. * Eating more fresh vegetables and fruits. * Eating lean proteins, such as fish, poultry, and legumes (beans and peas). * Eating less red meat and processed meats. * Choosing low-fat dairy products. * Using vegetable and nut oils in small amounts. * Limiting sweet and processed foods, such as chips, cookies, and baked goods. To cut back on sodium: * Limit the amount of canned, dried, packaged, and fast foods you eat. * Dont add salt to your food. * Season foods with herbs instead of salt when you cook. Total Time Total Time Spent Total Time Spent (In Minutes): 45
--- NOTE | 2025-03-16 12:20 | Neurology Consultation ---
Date of Consultation March 16, 2025 Assessment & Plan (1) Stroke-like symptoms: Oli Freire is a 54 yo M presenting with TIA vs panic attack with left lip numbness though history is discrepant and possibly full L sided numbness. Doubt cerebrovascular given normal vessel studies and MRI without small vessel disease. Would recommend at least aspirin monotherapy until seen by PCP and outpatient neurology. Otherwise DAPT for 21 which was started yesterday is reasonable to complete. Okay to remain on lipitor 40mg daily. Please contact us with any further questions. Telehealth Consultation Telehealth Information Telehealth Information: I performed this visit using a real-time telehealth connection between my location and the patients location ([facility]). After connecting through interactive tele-video, patient was identified by name and date of and/or wristband check.Patient (or authorized healthcare vendor representatives) was informed that this was a telemedicine visit and it was being conducted confidentially over secure lines. My office door was closed and no one else was present in the room with me.Patient (or authorized healthcare vendor representatives) provided consent to proceed with the visit, expressed an understanding of privacy and security of the telemedicine visit, and gave permission to have a hospital vendor representatives in the room in order to assist with the visit and to conduct portions of the visit, as needed. I informed the patient (or authorized healthcare vendor representatives) that I reviewed their record and presented the opportunity for them to ask any questions regarding the visit today. The patient agreed to participate. History of Present Illness Reason for Consultation: TIA Requesting Physician: Dr. Morris Attending Physician: Sharmila Morris MD History of Present Illness Oli Freire is a 54 yo M who drove himself to [facility] after an episode of left- sided chest discomfort and shortness of breath that evolved into numbness and tingling of the left lip; all symptoms resolved within roughly two hours and had not recurred. He denied weakness, vision change, speech difficulty, or fall. He takes antihypertensive and cholesterol medications but had not been on aspirin; a baby aspirin was given during the event. His partner confirmed return to baseline. Occasional panic attacks were acknowledged, and the patient stated that without the lip numbness he would have probably just tried to lay down. However, per ED records he also noted speech changes and L arm and leg numbness which he denied for me. His SO at bedside was also reportedly unconscious during the episode. Otherwise he feels back to baseline currently and is anxious to return home. Allergies Allergy/AdvReac Type Severity Reaction Status Date / Time No Known Allergies Allergy Unverified 03/16/25 02:06 Home Medications Medication Instructions Recorded Confirmed Type Pharmacist Discharge Consult 1 ea Not Applicable UD PRN ##0 03/16/25 Rx [Pharmacist Discharge Med Rec Consult] aspirin 81 mg tablet,delayed 81 mg PO QAM #30 tabs 03/16/25 Rx release atorvastatin 1 tab PO DAILY 03/16/25 03/16/25 History clopidogrel 75 mg tablet 75 mg PO QAM 20 days #20 tabs 03/16/25 Rx lisinopril 10 1 tab PO DAILY 03/16/25 03/16/25 History mg-hydrochlorothiazide 12.5 mg tablet Patient History Social History Smoking Status: Current every day smoker Tobacco Type: Cigarettes Second Hand Exposure: Yes; Do You Dip or Chew Tobacco: No; Tobacco Cessation Education Requested by Patient: No Hx Alcohol Use: Yes Alcohol type: beer Hx Substance Use: No Preferred Language: Kyrgyz Communication Ability: Effective Back Up Worker Required: No Beliefs That Will Affect Care: None Current Living Situation: Significant Other Feels Safe at Home: Yes Safety Concerns: Feels Safe At This Time Assistive Devices: Glasses Review of Systems +L lip numbness, resolved Physical Exam Neurological Examination: Mental Status: Awake and alert. Oriented to person, place, and time. Fluent. Comprehension intact. Affect appropriate. Cranial Nerves: II: Reads NIHSS cards, pupils 3/3 to 2/2, rose grossly intact. III/IV/: Versions intact without nystagmus, no gaze preference. V: Facial sensation symmetric to light touch VII: Facial expression symmetric VIII: Hearing intact to voice IX/X: Palate elevates symmetrically XI: Shoulder shrug symmetric XII: Tongue midline Motor: Strength was symmetric and antigravity throughout. Pronator drift was absent. There were no abnormal movements. Sensory: Sensation to light touch was intact. Coordination: Finger to nose and heel to [place] were intact. Reflexes: Unable to assess over telemedicine Results & Data Vital Signs (Past 12 Hours) Vital Signs Temp Pulse Pulse Resp BP BP Pulse Ox 03/16/25 11:51 36.9 C 65 18 145/70 H 92 03/16/25 11:31 36.9 C 65 18 145/70 H 92 03/16/25 07:22 36.5 C 62 18 122/64 93 03/16/25 06:33 36.6 C 73 18 148/85 H 93 03/16/25 06:21 03/16/25 05:56 86 18 117/61 97 03/16/25 04:00 68 18 98/65 L 94 03/16/25 03:41 66 18 113/69 93 03/16/25 03:26 63 16 100/61 97 03/16/25 03:11 65 18 121/63 96 03/16/25 03:00 65 16 117/71 94 03/16/25 02:46 79 16 125/77 91 03/16/25 02:27 80 19 117/72 93 03/16/25 02:26 77 19 92 03/16/25 01:55 78 03/16/25 01:46 36.4 C L 79 18 118/73 97 Pulse Ox O2 Del Method O2 Del Method 03/16/25 11:51 03/16/25 11:31 Room Air 03/16/25 07:22 Room Air 03/16/25 06:33 Room Air 03/16/25 06:21 93 Room Air 03/16/25 05:56 Room Air 03/16/25 04:00 Room Air 03/16/25 03:41 Room Air 03/16/25 03:26 Room Air 03/16/25 03:11 Room Air 03/16/25 03:00 Room Air 03/16/25 02:46 Room Air 03/16/25 02:27 Room Air 03/16/25 02:26 Room Air 03/16/25 01:55 03/16/25 01:46 Room Air Laboratory Results Abnormal lab results 03/16/25 03/16/25 03/16/25 Range/Units 01:58 02:02 03:03 WBC 11.79 H (4.8-10.8) K/ul Neut # (Auto) 8.05 H (1.40-6.50) K/uL [place] # (Auto) 0.67 H (0.11-0.59) K/uL Potassium 3.4 L (3.5-5.1) mmol/L Carbon Dioxide 19 L (21-32) mmol/L POC Total CO2 19 L (24-31) mmol/L Anion Gap 13 H (3-11) POC Ioniz Calcium Red 1.11 L (1.12-1.32) mmol/l Triglycerides 156 H (0-150) mg/dl VLDL Cholesterol, Calc 31 H (0-30) mg/dl Diagnostic Findings Head CT 03/16/25 01:56 EXAM: CT head/brain wo con CLINICAL HISTORY: neuro deficit, acute stroke suspected TECHNIQUE: Multiple axial images were obtained from the skull base to the vertex without contrast. CT scan was performed according to ALARA (as low as reasonably achievable). COMPARISON: None. FINDINGS: The brain demonstrates normal morphology, attenuation, and volume for age. There is no evidence of a space-occupying lesion, hemorrhage, edema, mass effect, midline shift, extra-axial collection, or hydrocephalus. The ventricles, sulci, and basal cisterns are symmetric and normal in size and configuration. Rivera-white matter differentiation is preserved. The visualized paranasal sinuses and mastoid air cells are well aerated. Orbital contents are within normal limits. Bony structures are intact. IMPRESSION: 1. CT scan is negative for large territorial ischemic or hemorrhagic stroke. 2. Non-contrast CT can be negative in the setting of hyperacute infarct or small ischemic infarct, and further evaluation with diffusion-weighted MRI is recommended as clinically appropriate. Electronically signed by Kain Carter 03-16-2025 02:38 AM Head CTA 03/16/25 01:56 EXAM: CT angio head w con CLINICAL HISTORY: neuro deficit, acute stroke suspected TECHNIQUE: Contrast-enhanced, thin-slice CT angiography scan of the cerebral vessels was performed with intravenous contrast. Angiographic images were processed, and 3D MIP images were acquired for interpretation. Contiguous axial images were obtained. Reformatted coronal and sagittal images were also reviewed. If IV contrast material had not been administered, the likelihood of detecting abnormalities relevant to the patient's condition would have been substantially decreased. CT scan was performed according to ALARA (as low as reasonably achievable). COMPARISON: none. FINDINGS: Bilateral internal carotid arteries show normal course, calibre, and opacification in the canalicular and cavernous parts. Their division into the anterior cerebral artery and middle cerebral artery is defined. A1, A2, and M1, M2 segments are normal on both sides. Bilateral vertebral arteries are seen to unite to form the basilar artery in a normal fashion. Basilar artery shows normal course, caliber, and opacification. Its division into the posterior cerebral arteries is defined. Bilateral P1 and P2 segments are normal. Visualized venous structures show normal opacification. No evidence of intracranial aneurysm or AV malformation is seen. IMPRESSION: No evidence of stenosis or aneurysm. No evidence of dissection. Electronically signed by Kain Carter 03-16-2025 02:39 AM Neck CTA 03/16/25 01:56 EXAM: CT angio neck with con CLINICAL HISTORY: neuro deficit, acute stroke suspected TECHNIQUE: Contrast-enhanced, thin-slice CT angiography scan of the carotid vessels was performed with intravenous contrast. Angiographic images were processed, and 3D MIP images were acquired for interpretation. Contiguous axial images were obtained. Reformatted coronal and sagittal images were also reviewed. If IV contrast material had not been administered, the likelihood of detecting abnormalities relevant to the patient's condition would have been substantially decreased. The CT scan was performed according to ALARA (as low as reasonably achievable). COMPARISON: None. FINDINGS: The included great vessels of the aortic arch are grossly unremarkable. The common carotid artery, carotid bulb, internal carotid artery, and origin of the external carotid artery are well opacified. The vertebral arteries are well opacified. The jugular veins are well opacified. The included lung apices are grossly unremarkable. The thyroid gland appears unremarkable. IMPRESSION: No evidence of stenosis or aneurysm. No evidence of dissection. Electronically signed by Kain Carter 03-16-2025 02:49 AM Chest X-Ray 03/16/25 01:57 EXAM: XR chest 1V portable CLINICAL HISTORY: SOB/CP. TECHNIQUE: An X-ray image of the chest was obtained in AP projection. COMPARISON: No prior studies are available for comparison. FINDINGS: Chest leads are identified. Pulmonary Parenchyma: The lungs are clear bilaterally. There is no evidence of consolidation, collapse, or focal opacities. No pulmonary nodules are identified. There is no evidence of pleural effusion or pleural thickening. Prominent vessels are seen at both pined[place], likely due to vascular congestion. Heart and Mediastinum: The heart size and shape are normal. There is no mediastinal widening or masses. No hilar or mediastinal lymphadenopathy is seen. Bony Thorax: The bony thorax appears intact without fractures or deformities. Soft Tissues: The soft tissues overlying the chest wall are unremarkable. IMPRESSION: 1. No acute cardiopulmonary abnormalities are identified. 2. Prominent vessels at both pineda, likely due to vascular congestion. Electronically signed by Jacob Kimble 03-16-2025 03:11 AM Brain MRI 03/16/25 06:21 HISTORY: Hypertension and hyperlipidemia. Left-sided facial numbness. TECHNIQUE: MRI of the brain with and without IV contrast. COMPARISON: Head CT dated 03/16/2025. FINDINGS: The sella is not expanded. The cerebellar tonsils do not extend below the foramen magnum.No areas of restricted diffusion to suggest acute infarct. The brain parenchyma demonstrates normal signal intensity on T2/FLAIR weighted imaging.No areas of susceptibility artifact to suggest intracranial hemorrhage or abnormal hemosiderin deposition.No abnormal intracranial enhancement is identified.Mild diffuse volume loss. Ventricular caliber is appropriate. The fourth ventricle is midline. The basal cisterns are patent. The major intracranial flow voids are maintained. The globes and orbits are unremarkable. No paranasal sinus air-fluid levels. Mastoid air cells are well aerated. Soft tissues of the skull base and scalp are unremarkable. IMPRESSION: No acute intracranial findings. No evidence of acute infarct, intracranial hemorrhage, or enhancing intracranial mass. Electronically signed by Ulises Naik 03-16-2025 11:13 AM
[2025-03-16 12:40] LABS: Anion Gap 8.0 (3-11); Blood Urea Nitrogen 12.0 mg/dl (6-23); Calcium 9.4 mg/dl (8.6-10.3); Carbon Dioxide 22.0 mmol/L (21-32); Chloride 111.0 mmol/L (98-107); Creatinine Clr Calc Pharmacy 77.3 ml/min; Glucose 101.0 mg/dl (70-99(Fasting)); Potassium 4.4 mmol/L (3.5-5.1); Sodium 141.0 mmol/L (136-145)
--- NOTE | 2025-03-16 13:24 | XCELERA ---
[id number]
--- NOTE | 2025-03-16 19:29 | Electrocardiogram Report ---
Test Reason : Blood Pressure : */* mmHG Vent. Rate : 77 BPM Atrial Rate : 77 BPM P-R Int : 138 ms QRS Dur : 84 ms QT Int : 380 ms P-R-T Axes : -13 -9 -17 degrees QTcB Int : 430 ms Normal sinus rhythm with sinus arrhythmia Inferior infarct , age undetermined Abnormal ECG No previous ECGs available Confirmed by Trever Crook ([id number]) on 03/16/2025 7:29:07 PM Referred By: REFERRED SELF Confirmed By: Trever Crook
[2025-03-17] MEDS ORDERED: CLOPIDOGREL BISULFATE 75 MG TAB PO SCH (09:00)
--- NOTE | 2025-03-18 12:38 | Pharmacy Report ---
Pharmacist Stroke Counseling - Date of Service March 18, 2025 - Scope: Pharmacy has been consulted to provide medication discharge counseling for this patient admitted with transient ischemic attack as per the Pharmacist Discharge Counseling for Stroke Patients Protocol. - Medications on Discharge: Home Medications Medication Instructions Recorded Confirmed atorvastatin 1 tab PO DAILY 03/16/25 03/16/25 lisinopril 10 1 tab PO DAILY 03/16/25 03/16/25 mg-hydrochlorothiazide 12.5 mg tablet New Rx's Medication Instructions Recorded Pharmacist Discharge Consult 1 ea Not Applicable UD PRN ##0 03/16/25 [Pharmacist Discharge Med Rec Consult] aspirin 81 mg tablet,delayed 81 mg PO QAM #30 tabs 03/16/25 release clopidogrel 75 mg tablet 75 mg PO QAM 20 days #20 tabs 03/16/25 - Action: The above medications, specifically ones for stroke treatment/prophylaxis, have been reviewed in detail with the patient and/or patient collections representative(s) prior to discharge. This includes indication, common adverse reactions, drug interactions, and medication administration. Medication counseling has been employed using the teach-back method to ensure understanding. - Outcome: The patient and/or patient collections representative(s) have demonstrated understanding of the medications. Additional comments: * Patient confirmed that medications were picked up from pharmacy and that he has begun to take them without side effects * No obvious barriers to medication compliance identified on interview Thank you for allowing pharmacy to be involved in the care of this patient. Please call [phone] with any additional questions
== END 2025-03-16 12:46 | disposition home or self-care (01) | DRG 69 ==
LOC: ED 01:43 → INTOOBSV 04:52 → 2S 04:52